=== PATIENT | male | born 1975 | race Caucasian/White ===

== ENCOUNTER 2021-07-31 14:22 | Emergency (ER) | payer OTHER, BC, SELFPAY ==
--- NOTE | ~2021-07-31 | XR_ITS ---
EXAMINATION: XR thoracic spine 3V DATE: 07/31/2021 14:58 INDICATION: Midline back pain. Fall. TECHNIQUE: 3 views of thoracic spine were obtained. COMPARISON: None. FINDINGS: There is 20 degrees dextroscoliosis of thoracic spine. There is a burst fracture of T10 wit h 2/5 loss of height and focal kyphosis. Intervertebral disc heights are normal. IMPRESSION: 1. Age-indeterminate T10 burst fracture. 2. Thoracic dextroscoliosis. Reviewed, dictated and finalized at location A.
[2021-07-31 14:37] VITALS: BP 151/98; PULSE 126; RESP 16; TEMP 37.7; O2SAT 100
--- NOTE | 2021-07-31 15:28 | ED.BACK ---
HPI - Back Pain/Injury General Chief Complaint: Back Pain/Injury Stated Complaint: Back Pain Time Seen by Provider: 07/31/21 15:03 Source: patient and RN notes reviewed Mode of arrival: ambulatory Limitations: no limitations History of Present Illness HPI Narrative: Patient presents today complaining of mid back pain. Yesterday, he was carrying a 35 pound tank at work when he slipped in some rain water, falling onto his back. In the process, he threw the tank to the sides we did not land on him. He denies numbness or tingling in the extremities or genitals, will radiation of the pain, loss of bowel or bladder control. He currently rates his back pain 5/10. He has been taking Tylenol and some years old Flexeril with mild relief. Denies any chronic back pain. States his pain is located on the sides of the spine, but not in the middle. MD elicited complaint: back pain Related Data Home Medications Medication Instructions Recorded Confirmed amlodipine 5 mg PO DAILY 07/31/21 07/31/21 Allergies Allergy/AdvReac Type Severity Reaction Status Date / Time No Known Allergies Allergy Verified 07/31/21 14:53 Review of Systems Review of Systems: CONSTITUTIONAL: Denies body aches, fever, chills, or sweats. EYES: Denies visual changes, redness, or discharge. ENT: Denies rhinorrhea, congestion, sore throat, or otalgia. CARDIOVASCULAR: Denies chest pain, palpitations, or edema. RESPIRATORY: Denies cough or dyspnea. GASTROINTESTINAL: Denies abdominal pain, nausea, vomiting, or diarrhea. GENITOURINARY: Denies dysuria or hematuria. SKIN: Denies rash, itching, or wounds. MUSCULOSKELETAL: Denies joint pain, or myalgia.+ Back pain NEUROLOGIC: Denies headache, numbness, tingling, or weakness. PSYCH: Denies depression or anxiety. [facility] Past Medical History Medical History (Updated 07/31/21 @ 15:37 by Marisol Yu, INSURANCE POLICY ISSUE CLERK, ) Hypertension Comments At time of signature, I have reviewed and agree with nursing past medical, surgical, social and family history unless otherwise noted. Please see nursing chart for further information. There is no relevant family history pertinent to the presenting complaint Exam Narrative: GENERAL: Well-appearing, well-nourished, and in no acute distress. HEAD: Normocephalic, atraumatic. EYES: EOMI. No redness or drainage. Conjunctivae normal. ENT: Mucous membranes pink and moist. NECK: Normal AROM. Supple. No lymphadenopathy. CHEST: No respiratory distress. Clear to auscultation. HEART: Regular rate and rhythm. No murmur appreciated. Normal peripheral pulses. ABDOMEN: Soft, nontender, nondistended, normal active bowel sounds. MUSCULOSKELETAL: No bony tenderness of the thoracic or lumbar spine with aggressive palpation. Patient localizes pain in the bilateral paraspinal muscles of the mid to lower thoracic spine. This area is nontender to palpation. Distal sensation intact in all 4 extremities. Capillary refill normal. Pedal pulses and radial pulses normal. Handgrips equal and strong. Dorsiflexion and plantarflexion equal and strong bilaterally against resistance. EXTREMITIES: Normal range of motion. No edema. SKIN: Warm, dry, no rash. Capillary refill normal. Normal skin turgor. NEURO: No focal deficits. Alert and oriented x3. Gait steady. PSYCH: Normal affect. No signs of depression or anxiety. Course Course Emergency Course: Patient's spine is nontender. I do not feel that this T10 burst fracture upon x-ray is acute. I will treat him for thoracic back strain with muscle relaxers and have him follow-up with Workmen's Comp./PCP. Anticipatory guidance given. Patient agrees with plan. Vital Signs Vital signs: Vital Signs Temperature 99.8 F H 07/31/21 14:37 Pulse Rate 126 H 07/31/21 14:37 Respiratory Rate 16 07/31/21 14:37 Blood Pressure 151/98 H 07/31/21 14:37 Pulse Oximetry 100 07/31/21 14:37 Temperature 99.8 F H 07/31/21 14:37 Pulse Rate 126 H 07/31/21
== END 2021-07-31 15:40 | disposition home or self-care (01) ==
PROVIDERS: Emergency Provider Nurse Practitioner; PCP Internal Medicine
DX: S29.012A Strain of muscle and tendon of back wall of thorax, initial encounter (principal); W01.0XXA Fall on same level from slipping, tripping and stumbling without subsequent striking against object, initial encounter; Y99.0 Civilian activity done for income or pay; I10 Essential (primary) hypertension
CPT/HCPCS: 72072; 99213; G0463